=== PATIENT | female | born 1980 | race Caucasian/White ===

== ENCOUNTER 2021-10-12 21:08 | Inpatient (IN) | payer OTHER, SELFPAY ==
[2021-10-12] VITALS (7 sets, daily range): BP systolic 87–109; BP diastolic 53–56; PULSE 101–109; RESP 30–31; O2SAT 96–100; BMI 29.0
--- NOTE | 2021-10-12 21:21 | DI.RAD.S_ITS ---
PROCEDURE: XR CHEST 1V INDICATIONS: suspected sepsis TECHNIQUE: One view of the chest was acquired. COMPARISON: None. FINDINGS: Surgical changes and devices: None. Lungs and pleura: Lungs are clear. No pleural effusions or pneumothorax. Mediastinum: Mediastinal contours appear normal. Heart size is normal. Bones and chest wall: No suspicious bony lesions. Overlying soft tissues appear unremarkable. IMPRESSION: Mildly reduced inspiratory volume, left greater than right, no pneumonia seen. No subdiaphragmatic free air is found. Dictated by: Chico Santoro M.D. on 10/12/2021 at 22:02 Approved by: Chico Santoro M.D. on 10/12/2021 at 22:02
[2021-10-12] MEDS: SODIUM CHLORIDE 0.9% 1,000 ML 1000 ML IV (21:28)
[2021-10-12 21:45] LABS: Appearance Urine UA CLOUDY; Bilirubin Urine UA 1+ (NEGATIVE); Glucose Urine UA NEGATIVE (Negative); Ketones Urine UA TRACE (NEGATIVE); Leukocyte Esterase Urine UA 2+ (NEGATIVE); Nitrite Urine UA NEGATIVE (Negative); Occult Blood Urine UA 1+ (Negative); Protein Urine UA 2+ (Negative); Specific Gravity Urine UA 1.025 (1.000-1.035); Urobilinogen Urine UA 0.2 E.U./dL (0.2)
[2021-10-12 21:46] LABS: Add Manual Diff / Slide Review NO; Basophils Absolute Auto 0 /uL (0-100); Basophils Percent Auto 0.2 % (0-2); Eosinophils Absolute Auto 0 /uL (0-450); Hematocrit 40.4 % (36-46); Hemoglobin 13.7 g/dL (13.5-17.5); Lymphocytes Absolute Auto 600 /uL (1100-4500); Lymphocytes Percent Auto 5.7 % (25-40); Mean Corpuscular Hemoglobin 33.8 PG (26-34); Mean Corpuscular Volume 99.4 fL (80-100); Monocytes Absolute Auto 1000 /uL (0-900); Monocytes Percent Auto 8.9 % (3-14); Neutrophils Absolute Auto 9700 /uL (1500-7000); Neutrophils Percent Auto 85.2 % (50-75); Platelet Count 261 X10^3/uL (150-400); Red Blood Cell Count 4.07 X10^6/uL (4.0-5.2); Red Cell Distribution Width 14.3 % (11.6-14.8); White Blood Cell Count 11.3 X10^3/uL (4.5-11.0)
[2021-10-12 21:51] LABS: Color Urine UA Dark Yellow
[2021-10-12 21:53] LABS: Ictotest Urine Positive (Negative); RBC Urine 0-1/HPF (0-5/HPF); WBC Urine 30-100/HPF (0-5/HPF)
[2021-10-12 21:53] LABS: Alanine Aminotransferase 24 IU/L (<35); Alkaline Phosphatase 73 U/L (38-126); Aspartate Aminotransferase 32 IU/L (14-36); BUN Creatinine Ratio 10.3 (6-22); Bilirubin Total 1.1 mg/dL (0.2-1.3); Blood Urea Nitrogen 23 mg/dL (7-17); Calcium 8.9 mg/dL (8.4-10.2); Carbon Dioxide 18 mmol/L (22-32); Chloride 97 mmol/L (98-107); Estimated Glomerular Filt Rate 28 mL/min (>60); Globulin 3.9 g/dL (1.7-4.1); Glucose 114 mg/dL (70-100); HEMOLYSIS 21 (0-50); Lactate (Lactic Acid) 1.4 mmol/L (0.7-2.1); Lipase 86 U/L (23-300); Potassium 3.2 mmol/L (3.4-5.1); Sodium 130 mmol/L (137-145); Total Protein 7.9 g/dL (6.3-8.2)
[2021-10-12 21:54] LABS: Squamous Epithelial Cell Urine 10-30 /HPF (0-5/HPF)
[2021-10-12 21:55] LABS: Bacteria Urine Many (>30); Culture Indicated Urine Cult Not Indicated; Hyaline Casts Urine 0-1/LPF; Mucus Urine 1+ (Negative)
[2021-10-12 21:56] LABS: COVID19 -Nasal RAPID Negative (Negative)
--- NOTE | 2021-10-12 22:04 | ED.GENADULT ---
HPI - General Adult General Chief complaint: Abdominal Pain Stated complaint: Temp 103.4F, Syncope Time Seen by Provider: 10/12/21 21:37 History of Present Illness HPI narrative: 41-year-old female former smoker without any significant medical history presents for evaluation of fever, chills and feeling unwell for the past few days. She states that she probably started feeling poorly over the weekend but thought maybe she just had a viral upper respiratory infection or perhaps was dehydrated from the son. As the week has progressed she has had urinary complaints including dysuria and frequency as well as back pain. Additionally she complains of generally feeling unwell and is a bit achy with malaise. She denies runny nose, sore throat or cough. She has no chest pain or shortness of breath. She has become dizzy and lightheaded and became near syncopal at 1 point. Related Data Allergies Allergy/AdvReac Type Severity Reaction Status Date / Time sulfamethoxazole Allergy Intermediate Hives Verified 10/13/21 01:02 [From ] trimethoprim [From ] Allergy Intermediate Hives Verified 10/13/21 01:02 Review of Systems Review of Systems Narrative: GENERAL: See HPI HEENT: Denies sinus pain, ear pain, sore throat, difficulty swallowing, dizziness. RESPIRATORY: Denies dyspnea, cough, wheezing, hemoptysis, sputum. CARDIOVASCULAR: Denies chest pain, palpitations, orthopnea, edema, GASTROINTESTINAL: See HPI : See HPI MUSCULOSKELETAL: denies weakness, joint pain, or bony pain SKIN: Denies rash, skin lesions, or other NEUROLOGIC: Denies weakness, headache, numbness, change in speech, confusion, seizures, incoordination. PSYCHIATRIC: No concerning psychosocial issues. 12 point review of systems is negative except for those stated above Patient History Social History Smoking Status: Former smoker Exam Narrative Exam Narrative: GENERAL: [41] year old patient appears stated age. Well-developed patient, in mild distress. HEAD: Atraumatic. Normocephalic. EYES: Pupils equal round and reactive. Extraocular motions intact. No scleral icterus. No injection or drainage. ENT: Nose without bleeding, purulent drainage. Throat without erythema, tonsillar hypertrophy or exudate. Airway patent. NECK: Trachea midline. Non tender CARDIOVASCULAR: Tachycardic and regular rhythm without murmurs, gallops, or rubs. RESPIRATORY: Clear to auscultation. Breath sounds equal bilaterally. No wheezes, rales, or rhonchi. GASTROINTESTINAL: Abdomen soft, non-tender, nondistended. EXTREMITIES: No edema or joint tenderness. BACK: Bilateral CVA tenderness NEURO: AOx3. SKIN: No rash or erythema of visible areas Initial Vital Signs Initial Vital Signs: Vital Signs Pulse Rate 106 H 10/12/21 21:54 Pulse Oximetry 96 10/12/21 21:54 Course Orders Ordered: ED Orders 10/12/21 21:21 XR chest 1V Stat RT Consult Eval and Treat NOW 10/12/21 21:25 Ictotest Urine Stat UA Complete [Urinalysis and Microscopic] Stat 10/12/21 21:30 COVID19 -Nasal RAPID/Pre-Proc Stat Complete Blood Count AUTO DIFF Stat Comprehensive Metabolic Panel Stat Lactate (Lactic Acid) Stat Lipase Stat Procalcitonin Stat 10/12/21 21:43 Blood Culture Stat 10/12/21 23:38 CT kidney ureter bladder (KUB) Stat 10/13/21 02:25 Consult to Tele-stock plan administrator Routine 10/13/21 05:00 Basic Metabolic Panel DAILY Complete Blood Count AUTO DIFF DAILY Magnesium DAILY 10/14/21 05:00 Basic Metabolic Panel DAILY Complete Blood Count AUTO DIFF DAILY Magnesium DAILY 10/15/21 05:00 Basic Metabolic Panel DAILY Complete Blood Count AUTO DIFF DAILY Magnesium DAILY Acetaminophen (Acetaminophen 325 Mg Tablet) 650 mg PO Q6HR PRN PRN Reason: Fever/Mild Pain (1-3) Heparin Sodium (Porcine) (Heparin 5,000 Unit/Ml Vial) 5,000 unit SUBCUT BID MELLISSA NOREPINEPHRINE BITARTRATE/D5W (Levophed) 4 mg in 250 mls @ 30 mls/hr IV TITRATE MELLISSA; Protocol Last Titration: 10/13/21 03:13 Dose: 0 mcg/min, 0 mls/hr Documented By: Titration: 10/13/21 01:27 Dose: 1 mcg/min, 3.75 mls/hr Documented By: Titration: 10/13/21 01:20 Dose: 2 mcg/min, 7.5 mls/hr Documented By: Titration: 10/13/21 01:11 Dose: 3 mcg/min, 11.25 mls/hr Documented By: Titration: 10/13/21 01:01 Dose: 2 mcg/min, 7.5 mls/hr Documented By: Titration: 10/13/21 00:56 Dose: 4 mcg/min, 15 mls/hr Documented By: Admin: 10/13/21 00:49 Dose: 8 mcg/min, 30 mls/hr Documented By: EVIE Sodium Chloride (Normal Saline 0.9%) 1,000 mls @ 250 mls/hr IV CONT MELLISSA Last Admin: 10/13/21 02:16 Dose: 250 mls/hr Documented By: EVIE Discontinued Medications Acetaminophen (Acetaminophen 325 Mg Tablet) 975 mg PO NOW ONE Stop: 10/12/21 23:16 Last Admin: 10/12/21 23:19 Dose: 975 mg Documented By: EDOUARD Sodium Chloride (Normal Saline 0.9%) 1,000 mls @ 1,000 mls/hr IV BOLUS ONE Stop: 10/12/21 22:20 Last Infusion: 10/12/21 23:47 Dose: 0 mls/hr Documented By: Admin: 10/12/21 21:28 Dose: 1,000 mls/hr Documented By: EVIE Ceftriaxone Sodium 2,000 mg/ (Sodium Chloride) 100 mls @ 200 mls/hr IV NOW ONE Stop: 10/12/21 22:05 Last Infusion: 10/12/21 23:20 Dose: 0 mls/hr Documented By: Admin: 10/12/21 22:18 Dose: 200 mls/hr Documented By: ALPESH Sodium Chloride (Normal Saline 0.9%) 2,680.74 mls @ 893.58 mls/hr 30 ml/kg infuse over 3 hr (2680.74 ml) IV NOW ONE Stop: 10/13/21 02:30 Last Infusion: 10/13/21 01:31 Dose: 0 mls/hr Documented By: Admin: 10/12/21 23:37 Dose: 893.58 mls/hr Documented By: ALANIS Sodium Chloride (Normal Saline 0.9%) 500 mls @ 1,000 mls/hr IV BOLUS ONE Stop: 10/13/21 02:01 Last Infusion: 10/13/21 02:15 Dose: 0 mls/hr Documented By: Admin: 10/13/21 01:34 Dose: 1,000 mls/hr Documented By: SB Sodium Chloride (Normal Saline 0.9%) 1,000 mls @ 175 mls/hr IV CONT MELLISSA Reevaluation(s) Reevaluation #1: 0020 -patient has been given 30 cc/kilogram of fluids for sepsis and pressure continues to slowly drop, map is now at 60, Levophed ordered, 2nd IV placed 0110 - Levo being titrated down, now at 2, MAP is 72 0200 - Levo down to 1, MAP is 71 0341 -patient has now been off levo entirely for 30-40 minutes and map is in upper 70s and lower 80s. Patient doing much better, alert and oriented, appropriate for floor as opposed to ICU at this point Vital Signs Vital signs: Vital Signs - 8 hr 10/12/21 21:54 10/12/21 21:55 10/12/21 21:55 Temperature Pulse Rate 106 H 104 H Respiratory Rate 30 H Blood Pressure 109/56 L Pulse Oximetry 96 100 10/12/21 22:00 10/12/21 22:00 10/12/21 22:30 Temperature Pulse Rate 105 H Respiratory Rate 30 H Blood Pressure 93/53 L 107/56 L Pulse Oximetry 100 10/12/21 22:30 10/12/21 23:00 10/12/21 23:00 Temperature Pulse Rate 101 H 101 H Respiratory Rate 31 H 30 H Blood Pressure 94/54 L Pulse Oximetry 100 98 10/12/21 23:25 10/12/21 23:25 10/12/21 23:30 Temperature Pulse Rate 109 H Respiratory Rate Blood Pressure 87/55 L 94/55 L Pulse Oximetry 99 10/12/21 23:30 10/13/21 00:03 10/13/21 00:00 Temperature 100.2 F H Pulse Rate 104 H Respiratory Rate Blood Pressure 87/49 L Pulse Oximetry 99 10/13/21 00:00 10/13/21 00:15 10/13/21 00:15 Temperature Pulse Rate 104 H 99 H Respiratory Rate Blood Pressure 87/54 L Pulse Oximetry 94 96 10/13/21 00:17 10/13/21 00:17 10/13/21 00:30 Temperature Pulse Rate 99 H Respiratory Rate Blood Pressure 91/54 L 83/46 L Pulse Oximetry 96 10/13/21 00:30 10/13/21 00:34 10/13/21 00:34 Temperature Pulse Rate 96 H 93 H Respiratory Rate Blood Pressure 89/51 L Pulse Oximetry 97 95 10/13/21 00:42 10/13/21 00:42 10/13/21 00:50 Temperature Pulse Rate 97 H Respiratory Rate Blood Pressure 89/50 L 101/59 L Pulse Oximetry 95 10/13/21 00:50 10/13/21 00:55 10/13/21 00:55 Temperature Pulse Rate 96 H 87 Respiratory Rate 24 22 Blood Pressure 124/66 Pulse Oximetry 95 97 10/13/21 01:00 10/13/21 01:00 10/13/21 01:05 Temperature Pulse Rate 93 H Respiratory Rate Blood Pressure 119/66 106/59 L Pulse Oximetry 97 10/13/21 01:05 10/13/21 01:10 10/13/21 01:10 Temperature Pulse Rate 91 H 93 H Respiratory Rate 20 Blood Pressure 100/57 L Pulse Oximetry 96 96 10/13/21 01:15 10/13/21 01:15 10/13/21 01:20 Temperature Pulse Rate 89 Respiratory Rate 31 H Blood Pressure 103/56 L 107/56 L Pulse Oximetry 96 10/13/21 01:20 10/13/21 01:25 10/13/21 01:25 Temperature Pulse Rate 91 H 95 H Respiratory Rate 26 H 30 H Blood Pressure 110/64 Pulse Oximetry 97 97 10/13/21 01:30 10/13/21 01:30 10/13/21 01:35 Temperature Pulse Rate 92 H Respiratory Rate 27 H Blood Pressure 108/61 105/59 L Pulse Oximetry 97 10/13/21 01:35 10/13/21 01:40 10/13/21 01:40 Temperature Pulse Rate 94 H 98 H Respiratory Rate 27 H Blood Pressure 101/59 L Pulse Oximetry 97 95 10/13/21 01:45 10/13/21 01:45 10/13/21 01:57 Temperature Pulse Rate 95 H 98 H Respiratory Rate 27 H Blood Pressure 103/57 L Pulse Oximetry 94 96 10/13/21 01:58 10/13/21 01:58 10/13/21 02:00 Temperature Pulse Rate 95 H Respiratory Rate 30 H Blood Pressure 97/55 L 102/59 L Pulse Oximetry 94 10/13/21 02:00 10/13/21 02:05 10/13/21 02:05 Temperature Pulse Rate 95 H 94 H Respiratory Rate 31 H 27 H Blood Pressure 98/53 L Pulse Oximetry 95 96 10/13/21 02:10 10/13/21 02:10 10/13/21 02:15 Temperature Pulse Rate 96 H Respiratory Rate 25 H Blood Pressure 101/60 104/56 L Pulse Oximetry 95 10/13/21 02:15 10/13/21 02:20 10/13/21 02:20 Temperature Pulse Rate 96 H 94 H Respiratory Rate 24 36 H Blood Pressure 101/57 L Pulse Oximetry 95 94 10/13/21 02:25 10/13/21 02:25 Temperature Pulse Rate 93 H Respiratory Rate 29 H Blood Pressure 102/56 L Pulse Oximetry 97 Medical Decision Making Lab Data Result diagrams: 10/12/21 21:30 10/12/21 21:30 Labs: Lab Results 10/12/21 10/12/21 10/12/21 Range/Units 21:25 21:30 21:30 WBC 11.3 H (4.5-11.0) X10^3/uL RBC 4.07 (4.0-5.2) X10^6/uL Hgb 13.7 (13.5-17.5) g/dL Hct 40.4 (36-46) % MCV 99.4 (80-100) fL MCH 33.8 (26-34) PG MCHC 34.0 (30-36) % RDW 14.3 (11.6-14.8) % Plt Count 261 (150-400) X10^3/uL Neut % (Auto) 85.2 H (50-75) % Lymph % (Auto) 5.7 L (25-40) % [place] % (Auto) 8.9 (3-14) % Eos % (Auto) 0.0 L (2-4) % Baso % (Auto) 0.2 (0-2) % Neut # (Auto) 9700 H (3643-8720) /uL Lymph # (Auto) 600 L (6282-9401) /uL [place] # (Auto) 1000 H (0-900) /uL Eos # (Auto) 0 (0-450) /uL Baso # (Auto) 0 (0-100) /uL Sodium 130 L (137-145) mmol/L Potassium 3.2 L (3.4-5.1) mmol/L Chloride 97 L (98-107) mmol/L Carbon Dioxide 18 L (22-32) mmol/L BUN 23 H (7-17) mg/dL Creatinine 2.23 H (0.52-1.04) mg/dL Estimated GFR 28 L (>60) mL/min BUN/Creatinine Ratio 10.3 (6-22) Glucose 114 H (70-100) mg/dL Lactate (0.7-2.1) mmol/L Calcium 8.9 (8.4-10.2) mg/dL Total Bilirubin 1.1 (0.2-1.3) mg/dL AST 32 (14-36) IU/L ALT 24 (<35) IU/L Alkaline Phosphatase 73 (38-126) U/L Total Protein 7.9 (6.3-8.2) g/dL Albumin 4.0 (3.5-5.0) g/dL Globulin 3.9 (1.7-4.1) g/dL Albumin/Globulin Ratio 1.0 (1.0-2.8) Lipase 86 (23-300) U/L Procalcitonin 26.3 H (<0.5) ng/mL Urine Color Dark yellow Urine Appearance Cloudy Urine pH 5.0 (4.5-8.0) Ur Specific [place] 1.025 (1.000-1.035) Urine Protein 2+ H (Negative) Urine Glucose (UA) Negative (Negative) g/dL Urine Ketones Trace H (NEGATIVE) Urine Occult Blood 1+ H (Negative) Urine Nitrate Negative (Negative) Urine Bilirubin 1+ H (NEGATIVE) Ur Bilirubin Confirm Positive H (Negative) Urine Urobilinogen 0.2 (0.2) E.U./dL Ur Leukocyte Esterase 2+ H (NEGATIVE) Urine RBC 0-1/hpf (0-5/HPF) Urine WBC 30-100/hpf H (0-5/HPF) Ur Squamous Epith Cells 10-30 /hpf H (0-5/HPF) Urine Bacteria Many (>30) H (None) Hyaline Casts 0-1/lpf (None) Urine Mucus 1+ H (Negative) Ur Culture Indicated? Cult not indicated SARS-CoV-2 (PCR) (Negative) 10/12/21 10/12/21 Range/Units 21:30 21:30 WBC (4.5-11.0) X10^3/uL RBC (4.0-5.2) X10^6/uL Hgb (13.5-17.5) g/dL Hct (36-46) % MCV (80-100) fL MCH (26-34) PG MCHC (30-36) % RDW (11.6-14.8) % Plt Count (150-400) X10^3/uL Neut % (Auto) (50-75) % Lymph % (Auto) (25-40) % [place] % (Auto) (3-14) % Eos % (Auto) (2-4) % Baso % (Auto) (0-2) % Neut # (Auto) (4504-3712) /uL Lymph # (Auto) (0526-0248) /uL [place] # (Auto) (0-900) /uL Eos # (Auto) (0-450) /uL Baso # (Auto) (0-100) /uL Sodium (137-145) mmol/L Potassium (3.4-5.1) mmol/L Chloride (98-107) mmol/L Carbon Dioxide (22-32) mmol/L BUN (7-17) mg/dL Creatinine (0.52-1.04) mg/dL Estimated GFR (>60) mL/min BUN/Creatinine Ratio (6-22) Glucose (70-100) mg/dL Lactate 1.4 (0.7-2.1) mmol/L Calcium (8.4-10.2) mg/dL Total Bilirubin (0.2-1.3) mg/dL AST (14-36) IU/L ALT (<35) IU/L Alkaline Phosphatase (38-126) U/L Total Protein (6.3-8.2) g/dL Albumin (3.5-5.0) g/dL Globulin (1.7-4.1) g/dL Albumin/Globulin Ratio (1.0-2.8) Lipase (23-300) U/L Procalcitonin (<0.5) ng/mL Urine Color Urine Appearance Urine pH (4.5-8.0) Ur Specific [place] (1.000-1.035) Urine Protein (Negative) Urine Glucose (UA) (Negative) g/dL Urine Ketones (NEGATIVE) Urine Occult Blood (Negative) Urine Nitrate (Negative) Urine Bilirubin (NEGATIVE) Ur Bilirubin Confirm (Negative) Urine Urobilinogen (0.2) E.U./dL Ur Leukocyte Esterase (NEGATIVE) Urine RBC (0-5/HPF) Urine WBC (0-5/HPF) Ur Squamous Epith Cells (0-5/HPF) Urine Bacteria (None) Hyaline Casts (None) Urine Mucus (Negative) Ur Culture Indicated? SARS-CoV-2 (PCR) Negative (Negative) Point of Care Testing Test Results Negative Urine Dip Bedside Urine Glucose Negative Bedside Urine Bilirubin - Negative Bedside Urine Ketone - Negative Urine Specific [place] 1.030 Bedside Urine Occult Blood + Bedside Urine pH 5.5 Bedside Urine Protein ++ 100 Bedside Urine Urobilinogen - Negative Bedside Urine Nitrite - Negative Bedside Urine Leukocytes ++ 125 Esterase Point of care testing: Point of Care Testing Test Results Negative Urine Dip Bedside Urine Glucose Negative Bedside Urine Bilirubin - Negative Bedside Urine Ketone - Negative Urine Specific [place] 1.030 Bedside Urine Occult Blood + Bedside Urine pH 5.5 Bedside Urine Protein ++ 100 Bedside Urine Urobilinogen - Negative Bedside Urine Nitrite - Negative Bedside Urine Leukocytes ++ [address] scan - abdomen/pelvis: Radiologist's Impression: Close Abdomen/Pelvis CT (Signed) Chico Santoro - 10/12/21 Chest X-Ray (Signed) Chico Santoro - 10/12/21 Launch?[place] [address] CT Scan Report Signed Patient: Lyric Syed MR#: [id number] : 1980 Acct:[id number] Age/Sex: 41 / F Date of Service: 10/12/21 Loc: ED Accession Number: [id number] ?? Procedure: CT kidney ureter bladder (KUB) Ordering Provider: Robin Zayas D.O. PROCEDURE:? CT KIDNEY URETER BLADDER (KUB) ? INDICATIONS:? septic, renal failure, pyelo ? TECHNIQUE:? Axial sections were acquired from the lung bases to the pubic symphysis.? Coronal and sagittal reformats were performed.? For radiation dose reduction, the following was used: ?automated exposure control, adjustment of mA and/or kV according to patient size.? ? COMPARISON:? None. ? FINDINGS:? Image quality:? Excellent.? ? Lung bases:? Unremarkable.? ? Heart:? No significant findings. ? URINARY: Right Kidney: ? No stones or hydronephrosis.? Right Ureter:? No hydroureter.? ? Left Kidney: ? No stones or hydronephrosis. Left Ureter:? No hydroureter.? ? Bladder:? Normal wall thickness. No stones. ? ? ? ABDOMEN: Liver:? Unremarkable.? ? Gallbladder:? Multiple small peripherally calcified gallstones are present within the gallbladder lumen but there is no sign of acute cholecystitis or biliary obstruction? ? Biliary ducts:? Unremarkable.? ? Pancreas:? Unremarkable.? ? Spleen:? Unremarkable.? ? Adrenal Glands:? Unremarkable.? ? ? Stomach and Bowel:? Stomach, small bowel loops, and colon are unremarkable.? Peritoneum:? No abnormal intraperitoneal fluid.? No free air.? ? Ventral Wall: ? No hernia.? Abdominal Nodes:? No enlarged retroperitoneal or mesenteric lymph nodes.? Vessels:? Aorta and inferior vena cava are normal in size.? ? PELVIS: Pelvic Organs:? Unremarkable.? ? Pelvic Nodes: Unremarkable. Miscellaneous: No inguinal hernias are seen. ? ? ? Bones:? Unremarkable. ? IMPRESSION:? ? No abscess or evidence of urinary tract obstruction or inflammation is seen.? Multiple small peripherally calcified gallstones are present within the gallbladder lumen without evidence of acute cholecystitis or biliary obstruction. ? Centrally positioned IUD is incidentally noted. ? Dictated by: Chico Santoro M.D. on 10/13/2021 at 0:18 ? ? Approved by: Chico Santoro M.D. on 10/13/2021 at 0:19 ? Discharge Plan Departure Patient Disposition: Admitted As Inpatient Clinical Impression: Sepsis, UTI (urinary tract infection), Acute kidney injury Admit Date/Time: 10/13/21 02:25 Admit Provider: Disha Devi
[2021-10-12 22:10] LABS: Procalcitonin 26.3 ng/mL (<0.5)
[2021-10-12] MEDS: cefTRIAXone 2,000 MG in SODIUM CHLORIDE 0.9% 100 ML 200 MG IV (22:18)
[2021-10-12] MEDS: ACETAMINOPHEN 325 MG TABLET 975 MG PO (23:19)
[2021-10-12] MEDS: SODIUM CHLORIDE 0.9% 893.58 ML IV (23:37)
--- NOTE | 2021-10-12 23:38 | DI.CT.S_ITS ---
PROCEDURE: CT KIDNEY URETER BLADDER (KUB) INDICATIONS: septic, renal failure, pyelo TECHNIQUE: Axial sections were acquired from the lung bases to the pubic symphysis. Coronal and sagittal reformats were performed. For radiation dose reduction, the following was used: automated exposure control, adjustment of mA and/or kV according to patient size. COMPARISON: None. FINDINGS: Image quality: Excellent. Lung bases: Unremarkable. Heart: No significant findings. URINARY: Right Kidney: No stones or hydronephrosis. Right Ureter: No hydroureter. Left Kidney: No stones or hydronephrosis. Left Ureter: No hydroureter. Bladder: Normal wall thickness. No stones. ABDOMEN: Liver: Unremarkable. Gallbladder: Multiple small peripherally calcified gallstones are present within the gallbladder lumen but there is no sign of acute cholecystitis or biliary obstruction Biliary ducts: Unremarkable. Pancreas: Unremarkable. Spleen: Unremarkable. Adrenal Glands: Unremarkable. Stomach and Bowel: Stomach, small bowel loops, and colon are unremarkable. Peritoneum: No abnormal intraperitoneal fluid. No free air. Ventral Wall: No hernia. Abdominal Nodes: No enlarged retroperitoneal or mesenteric lymph nodes. Vessels: Aorta and inferior vena cava are normal in size. PELVIS: Pelvic Organs: Unremarkable. Pelvic Nodes: Unremarkable. Miscellaneous: No inguinal hernias are seen. Bones: Unremarkable. IMPRESSION: No abscess or evidence of urinary tract obstruction or inflammation is seen. Multiple small peripherally calcified gallstones are present within the gallbladder lumen without evidence of acute cholecystitis or biliary obstruction. Centrally positioned IUD is incidentally noted. Dictated by: Chico Santoro M.D. on 10/13/2021 at 0:18 Approved by: Chico Santoro M.D. on 10/13/2021 at 0:19
[2021-10-13] VITALS (61 sets, daily range): BP systolic 83–124; BP diastolic 46–68; PULSE 84–108; RESP 12–36; TEMP 35.6–38.8; O2SAT 61–100; BMI 29.0
[2021-10-13] MEDS: NOREPINEPHRINE BITARTRATE/D5W 4 MG/250 ML PLAST..BAG 30 MG IV (00:49)
[2021-10-13] MEDS: SODIUM CHLORIDE 0.9% 500 ML 1000 ML IV (01:34)
[2021-10-13] MEDS: SODIUM CHLORIDE 0.9% 1,000 ML 250 ML IV ×2 (02:16→06:24)
--- NOTE | 2021-10-13 03:46 | P.HP_ITS ---
History of Present Illness History of Present Illness Date Patient Seen: 10/13/21 Time Patient Seen: 03:00 Chief complaint: Temp 103.4F, Syncope Narrative: Lyric Syed is a 41-year-old SAB 1 former smoker who presented to the emergency department with a 5 day history of spiking fevers, nausea, abdominal pain and back pain,. On Thursday she spiked a fever of 102.8 and had body aches thinking this was viral in nature. 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 She could not walk and then she started throwing up. She denies shortness of breath, sore throat, chest pain, dysuria or constipation. LMP: ThursdayOctober 07. She has eaten once in the past 4 days. She has been drinking a electrolyte type smoothie and has been able to tolerate that. She denies any recent travel or sick contacts at home. She states that she had COVID 2 months ago and had the exact same symptoms and has been testing herself daily and has been negative. Chest x-ray was negative for any acute cardiopulmonary process, CT of the abdomen and pelvis did not identify any abscesses or abnormalities of the kidneys or ureters. There was an incidental finding of an IUD. Her WBC is 11.3 with a left shift, sodium 130 potassium 3.2 chloride 97 bicarb 18 BUN 23 creatinine 2.23, unknown baseline, EGFR 28, glucose 114, lactate 1.4, liver enzymes were within normal limits, procalcitonin was markedly elevated at 26.3, UA was positive for ketones, occult blood, urine bilirubin, leukocyte esterase, urine WBC, squamous epithelial cells and ?many bacteria however did not meet criteria for culture. COVID-19 PCR is negative rest of viral culture is pending. She was very hypotensive in the emergency department and after 3 normal saline boluses she remained in a systolic of the 80s and was started on Levophed. She was to be initially admitted to the ICU on the Levophed drip but eventually her blood pressure normalized and decision was made to have her admitted to the floor after the Levophed was discontinued and her MAP was in low 80s. FH: Mother is 65, alive has diabetes type 2. Father is 68, alive has diet- controlled diabetes and gout Patient History Medical History (Updated 10/13/21 @ 04:57 by JANET Santos) Essential hypertension Surgical History (Updated 10/13/21 @ 04:58 by JANET Santos) History of tonsillectomy Hx of laparoscopic gastric banding Family & Social History Safety & Behavioral: Feels Safe in Current Yes Environment Been Physically Hurt or No Threatened By a Person Tobacco & Substance use: Smoking Status Former smoker alcohol intake frequency wine daily Substance Use Type does not use Meds Home Medications and Allergies Allergies Allergy/AdvReac Type Severity Reaction Status Date / Time sulfamethoxazole Allergy Intermediate Hives Verified 10/13/21 01:02 [From ] trimethoprim [From ] Allergy Intermediate Hives Verified 10/13/21 01:02 Review of Systems Review of Systems ROS: Yes All systems reviewed with the patient and are negative except as otherwise documented Exam Vital Signs (past 8 hours): - 10/12/21 21:54 10/12/21 21:55 10/12/21 21:55 Temperature Pulse Rate 106 H 104 H Respiratory Rate 30 H Blood Pressure 109/56 L Pulse Oximetry 96 100 10/12/21 22:00 10/12/21 22:00 10/12/21 22:30 Temperature Pulse Rate 105 H Respiratory Rate 30 H Blood Pressure 93/53 L 107/56 L Pulse Oximetry 100 10/12/21 22:30 10/12/21 23:00 10/12/21 23:00 Temperature Pulse Rate 101 H 101 H Respiratory Rate 31 H 30 H Blood Pressure 94/54 L Pulse Oximetry 100 98 10/12/21 23:25 10/12/21 23:25 10/12/21 23:30 Temperature Pulse Rate 109 H Respiratory Rate Blood Pressure 87/55 L 94/55 L Pulse Oximetry 99 10/12/21 23:30 10/13/21 00:03 10/13/21 00:00 Temperature 100.2 F H Pulse Rate 104 H Respiratory Rate Blood Pressure 87/49 L Pulse Oximetry 99 10/13/21 00:00 10/13/21 00:15 10/13/21 00:15 Temperature Pulse Rate 104 H 99 H Respiratory Rate Blood Pressure 87/54 L Pulse Oximetry 94 96 10/13/21 00:17 10/13/21 00:17 10/13/21 00:30 Temperature Pulse Rate 99 H Respiratory Rate Blood Pressure 91/54 L 83/46 L Pulse Oximetry 96 10/13/21 00:30 10/13/21 00:34 10/13/21 00:34 Temperature Pulse Rate 96 H 93 H Respiratory Rate Blood Pressure 89/51 L Pulse Oximetry 97 95 10/13/21 00:42 10/13/21 00:42 10/13/21 00:50 Temperature Pulse Rate 97 H Respiratory Rate Blood Pressure 89/50 L 101/59 L Pulse Oximetry 95 10/13/21 00:50 10/13/21 00:55 10/13/21 00:55 Temperature Pulse Rate 96 H 87 Respiratory Rate 24 22 Blood Pressure 124/66 Pulse Oximetry 95 97 10/13/21 01:00 10/13/21 01:00 10/13/21 01:05 Temperature Pulse Rate 93 H Respiratory Rate Blood Pressure 119/66 106/59 L Pulse Oximetry 97 10/13/21 01:05 10/13/21 01:10 10/13/21 01:10 Temperature Pulse Rate 91 H 93 H Respiratory Rate 20 Blood Pressure 100/57 L Pulse Oximetry 96 96 10/13/21 01:15 10/13/21 01:15 10/13/21 01:20 Temperature Pulse Rate 89 Respiratory Rate 31 H Blood Pressure 103/56 L 107/56 L Pulse Oximetry 96 10/13/21 01:20 10/13/21 01:25 10/13/21 01:25 Temperature Pulse Rate 91 H 95 H Respiratory Rate 26 H 30 H Blood Pressure 110/64 Pulse Oximetry 97 97 10/13/21 01:30 10/13/21 01:30 10/13/21 01:35 Temperature Pulse Rate 92 H Respiratory Rate 27 H Blood Pressure 108/61 105/59 L Pulse Oximetry 97 10/13/21 01:35 10/13/21 01:40 10/13/21 01:40 Temperature Pulse Rate 94 H 98 H Respiratory Rate 27 H Blood Pressure 101/59 L Pulse Oximetry 97 95 10/13/21 01:45 10/13/21 01:45 10/13/21 01:57 Temperature Pulse Rate 95 H 98 H Respiratory Rate 27 H Blood Pressure 103/57 L Pulse Oximetry 94 96 10/13/21 01:58 10/13/21 01:58 10/13/21 02:00 Temperature Pulse Rate 95 H Respiratory Rate 30 H Blood Pressure 97/55 L 102/59 L Pulse Oximetry 94 10/13/21 02:00 10/13/21 02:05 10/13/21 02:05 Temperature Pulse Rate 95 H 94 H Respiratory Rate 31 H 27 H Blood Pressure 98/53 L Pulse Oximetry 95 96 10/13/21 02:10 10/13/21 02:10 10/13/21 02:15 Temperature Pulse Rate 96 H Respiratory Rate 25 H Blood Pressure 101/60 104/56 L Pulse Oximetry 95 10/13/21 02:15 10/13/21 02:20 10/13/21 02:20 Temperature Pulse Rate 96 H 94 H Respiratory Rate 24 36 H Blood Pressure 101/57 L Pulse Oximetry 95 94 10/13/21 02:25 10/13/21 02:25 10/13/21 02:30 Temperature Pulse Rate 93 H Respiratory Rate 29 H Blood Pressure 102/56 L 106/55 L Pulse Oximetry 97 10/13/21 02:30 10/13/21 02:35 10/13/21 02:35 Temperature Pulse Rate 94 H 92 H Respiratory Rate 29 H 26 H Blood Pressure 106/58 L Pulse Oximetry 98 98 10/13/21 02:40 10/13/21 02:40 10/13/21 02:45 Temperature Pulse Rate 90 Respiratory Rate 29 H Blood Pressure 102/57 L 99/56 L Pulse Oximetry 61 L 10/13/21 02:45 10/13/21 02:50 10/13/21 02:50 Temperature Pulse Rate 90 90 Respiratory Rate 27 H 29 H Blood Pressure 102/57 L Pulse Oximetry 99 98 10/13/21 02:55 10/13/21 02:55 10/13/21 02:59 Temperature Pulse Rate 91 H 91 H Respiratory Rate 29 H 28 H Blood Pressure 105/56 L Pulse Oximetry 99 99 10/13/21 03:00 10/13/21 03:00 10/13/21 03:05 Temperature Pulse Rate 93 H Respiratory Rate 12 Blood Pressure 110/68 111/58 L Pulse Oximetry 99 10/13/21 03:05 10/13/21 03:10 10/13/21 03:10 Temperature Pulse Rate 93 H 91 H Respiratory Rate 20 29 H Blood Pressure 105/59 L Pulse Oximetry 98 98 10/13/21 03:15 10/13/21 03:15 10/13/21 03:20 Temperature Pulse Rate 96 H Respiratory Rate 19 Blood Pressure 108/60 104/55 L Pulse Oximetry 99 10/13/21 03:20 10/13/21 03:25 10/13/21 03:25 Temperature Pulse Rate 93 H 92 H Respiratory Rate 29 H 26 H Blood Pressure 103/58 L Pulse Oximetry 98 99 10/13/21 03:30 10/13/21 03:30 10/13/21 03:35 Temperature Pulse Rate 93 H Respiratory Rate 26 H Blood Pressure 108/58 L 111/59 L Pulse Oximetry 100 10/13/21 03:35 Temperature Pulse Rate 96 H Respiratory Rate 25 H Blood Pressure Pulse Oximetry 99 Narrative Exam Narrative: Gen: Alert, oriented, well-developed 41 y.o. female, appears flushed HEENT: normocephalic, atraumatic, conjunctiva clear, sclera non-icteric, oral mucosa pink and moist Neck: supple, full ROM, no JVD, trachea is midline Resp: Lungs CTA, non-labored breathing CV: RRR, no murmur or rubs Abd: soft, non-tender, normoactive BTs Skin: no lesions or rashes, dry and intact Neuro: Alert and oriented X 4 w/no focal deficits. Speech clear and coherent. Extremities: moves all 4 extremities, is ambulatory, negative Laci?s sign Psyche: normal mood and affect. Objective Labs Result Diagrams: 10/12/21 21:30 10/12/21 21:30 Labs: Laboratory Results - last 24 hr 10/12/21 10/12/21 10/12/21 21:25 21:30 21:30 WBC 11.3 H RBC 4.07 Hgb 13.7 Hct 40.4 MCV 99.4 MCH 33.8 MCHC 34.0 RDW 14.3 Plt Count 261 Neut % (Auto) 85.2 H Lymph % (Auto) 5.7 L [place] % (Auto) 8.9 Eos % (Auto) 0.0 L Baso % (Auto) 0.2 Neut # (Auto) 9700 H Lymph # (Auto) 600 L [place] # (Auto) 1000 H Eos # (Auto) 0 Baso # (Auto) 0 Sodium 130 L Potassium 3.2 L Chloride 97 L Carbon Dioxide 18 L BUN 23 H Creatinine 2.23 H Estimated GFR 28 L BUN/Creatinine Ratio 10.3 Glucose 114 H Lactate Calcium 8.9 Total Bilirubin 1.1 AST 32 ALT 24 Alkaline Phosphatase 73 Total Protein 7.9 Albumin 4.0 Globulin 3.9 Albumin/Globulin Ratio 1.0 Lipase 86 Procalcitonin 26.3 H Urine Color Dark yellow Urine Appearance Cloudy Urine pH 5.0 Ur Specific [place] 1.025 Urine Protein 2+ H Urine Glucose (UA) Negative Urine Ketones Trace H Urine Occult Blood 1+ H Urine Nitrate Negative Urine Bilirubin 1+ H Ur Bilirubin Confirm Positive H Urine Urobilinogen 0.2 Ur Leukocyte Esterase 2+ H Urine RBC 0-1/hpf Urine WBC 30-100/hpf H Ur Squamous Epith Cells 10-30 /hpf H Urine Bacteria Many (>30) H Hyaline Casts 0-1/lpf Urine Mucus 1+ H Ur Culture Indicated? Cult not indicated SARS-CoV-2 (PCR) 10/12/21 10/12/21 21:30 21:30 WBC RBC Hgb Hct MCV MCH MCHC RDW Plt Count Neut % (Auto) Lymph % (Auto) [place] % (Auto) Eos % (Auto) Baso % (Auto) Neut # (Auto) Lymph # (Auto) [place] # (Auto) Eos # (Auto) Baso # (Auto) Sodium Potassium Chloride Carbon Dioxide BUN Creatinine Estimated GFR BUN/Creatinine Ratio Glucose Lactate 1.4 Calcium Total Bilirubin AST ALT Alkaline Phosphatase Total Protein Albumin Globulin Albumin/Globulin Ratio Lipase Procalcitonin Urine Color Urine Appearance Urine pH Ur Specific [place] Urine Protein Urine Glucose (UA) Urine Ketones Urine Occult Blood Urine Nitrate Urine Bilirubin Ur Bilirubin Confirm Urine Urobilinogen Ur Leukocyte Esterase Urine RBC Urine WBC Ur Squamous Epith Cells Urine Bacteria Hyaline Casts Urine Mucus Ur Culture Indicated? SARS-CoV-2 (PCR) Negative Assessment & Plan Assessment & Plan narrative: Lyric Syed is admitted to the inpatient service for further evaluation and management of sepsis, fevers, and acute kidney injury. Sepsis, acute, present on admission * She presented with fevers, acute kidney injury, and metabolic abnormalities including hyponatremia and hypokalemia. * She received boluses of 3 L IV normal saline in the emergency department and was then initiated on IV norepinephrine due to acute hypotension * She was in the emergency department for approximately 4-5 hours and by the time she was ready to be brought up to the unit her blood pressure normalized * Fever control with oral Tylenol and ice packs patient unable to take ibuprofen in the setting of acute kidney injury Probable urinary tract infection, acute, present on admission * She had a markedly elevated procalcitonin though lactate was normal * She was initiated on IV ceftriaxone VTE Prophylaxis: Wells risk score 0]Enoxaparin 40 mg subQ once daily Bilateral SCDs Patient is admitted to the inpatient service due to the severity of disease, risks of further disease progression and this stay is expected to exceed 2 midnights. FEN: IV fluids: NS at 250ml/hour, diet: advance to general diet as tolerated, labs: CBC, C/BMP, liver enzymes, Mag, PT/INR Consultants None Dispo: discharge to home Code status: Full code as discussed with the patient who identifies her brother, Power Gray her surrogate and POA. [X] I have utilized all available immediate resources to obtain, update, or review of the patient's current medications VTE Deep Vein Thrombosis/Pulmonary Embolism Present on Admission: No MIPS - Admit I confirm the patient?s Advance Care Plan is present, Code status is documented, Surrogate decision maker is in patient?s record [If Yes, STOP here]: Yes MIPS - DC The patient has current or prior documentation of left ventricular ejection fraction (LVEF) less than 40%, or moderate or severely depressed left ventricul ar systolic function.: No COVID-19 COVID-19 status: Negative Result date/Date tested (Pos, Neg/Pending): 10/13/21 Time Spent With Patient Critical Care time: I spent a total of [] minutes of critical care time on this patient's care today; this time is exclusive of procedural time.
[2021-10-13 05:10] LABS: Adenovirus Not Detected (Not Detect); B. parapertussis Not Detected (Not Detecte); Bordetella pertussis Not Detected (Not Detecte); Chlamydophila pneumoniae Not Detected (Not Detect); Coronavirus 229E Not Detected (Not Detect); Coronavirus HKU1 Not Detected (Not Detect); Coronavirus NL 63 Not Detected (Not Detect); Coronavirus OC43 Not Detected (Not Detect); Human Metapneumovirus Not Detected (Not Detect); Human Rhinovirus/Enterovirus Not Detected (Not Detect); Influenza A Not Detected (Not Detect); Influenza B Not Detected (Not Detect); Mycoplasma pneumoniae Not Detected (Not Detect); Parainfluenza Virus 1 Not Detected (Not Detect); Parainfluenza Virus 2 Not Detected (Not Detect); Parainfluenza Virus 3 Not Detected (Not Detect); Parainfluenza Virus 4 Not Detected (Not Detect); Respiratory Syncytial Virus Not Detected (Not Detect); SARS- CoV-2 Not Detected (Not Detecte)
[2021-10-13 05:49] LABS: Alanine Aminotransferase 19 IU/L (<35); Albumin 3.2 g/dL (3.5-5.0); Albumin Globulin Ratio 1.1 (1.0-2.8); Alkaline Phosphatase 59 U/L (38-126); Aspartate Aminotransferase 25 IU/L (14-36); BUN Creatinine Ratio 12.3 (6-22); Bilirubin Total 0.8 mg/dL (0.2-1.3); Bilirubin Unconjugated 0.4 mg/dL (0.0-1.1); Blood Urea Nitrogen 16 mg/dL (7-17); Calcium 7.6 mg/dL (8.4-10.2); Carbon Dioxide 21 mmol/L (22-32); Chloride 104 mmol/L (98-107); Estimated Glomerular Filt Rate 53 mL/min (>60); Globulin 2.9 g/dL (1.7-4.1); Glucose 103 mg/dL (70-100); HEMOLYSIS < 15 (0-50); Magnesium 1.8 mg/dL (1.6-2.3); Potassium 3.4 mmol/L (3.4-5.1); Sodium 135 mmol/L (137-145); Total Protein 6.1 g/dL (6.3-8.2)
[2021-10-13 05:51] LABS: Add Manual Diff / Slide Review NO; Basophils Absolute Auto 0 /uL (0-100); Basophils Percent Auto 0.2 % (0-2); Eosinophils Absolute Auto 0 /uL (0-450); Hematocrit 35.5 % (36-46); Hemoglobin 12.1 g/dL (12.0-16.0); Lymphocytes Absolute Auto 700 /uL (1100-4500); Lymphocytes Percent Auto 7.6 % (25-40); Mean Corpuscular HGB Conc 34.1 % (30-36); Monocytes Absolute Auto 1000 /uL (0-900); Monocytes Percent Auto 11.3 % (3-14); Neutrophils Absolute Auto 7400 /uL (1500-7000); Neutrophils Percent Auto 80.9 % (50-75); Platelet Count 215 X10^3/uL (150-400); Red Blood Cell Count 3.55 X10^6/uL (4.0-5.2); Red Cell Distribution Width 14.5 % (11.6-14.8); White Blood Cell Count 9.2 X10^3/uL (4.5-11.0)
[2021-10-13] MEDS: POTASSIUM CHLORIDE IN WATER 10 MEQ/100 ML PIGGYBACK 100 MEQ IV ×4 (06:26→12:58)
[2021-10-13] MEDS: ACETAMINOPHEN 325 MG TABLET 975 MG PO ×2 (08:24→19:57)
[2021-10-13] MEDS: HEPARIN 5,000 UNIT/ML VIAL 5000 UNIT SUBCUT ×2 (08:24→21:09)
[2021-10-13] MEDS: ONDANSETRON 4 MG/2 ML INJ IV (08:24)
[2021-10-13] MEDS: SODIUM CHLORIDE 0.9% 1,000 ML 175 ML IV (12:58)
--- NOTE | 2021-10-13 15:14 | CM.DANOTE ---
Initial Discharge Planning Note: Met with patient, introduced self and role. Payer: [employer] and self pay. Patient employed. 41 year old single female admitted early this morning with fever and syncope, abdominal and back pain, ROSALIA abnormal labs. She has been started on IV antibiotics. Patient's daughter Mable asleep in room. Patient and daughter live together in [place]. Patient desires to return to previous home arrangement upon discharge. Patient drives and is independent. Plan: Follow closely for needs. TAMAR Discharge Planning/Care Management CM Discharge Assessment Start: 10/13/21 15:13 Freq: Status: Active Protocol: Document 10/13/21 15:13 (Rec: 10/13/21 15:14 [id number]) Discharge Planning Assessment Assigned Personal Care Aid Milady Hunter RN/ANDREAP Advance Directives? No History Provided By Patient Prior Living Arrangements Apartment/Condo Household Members family Type of transporation used prior to Drives own vehicle admit Willing to Return to Facility? Yes Independent with ADL's Yes Is patient alert and oriented? Yes Caregiver for Another No Barriers to Discharge No Discharge Plan Home Referrals Initiated None needed Review Status In Process Next Review Type Continued Stay Review
--- NOTE | 2021-10-13 17:34 | PC.NURSE ---
Pt is AxOx4, independent and cooperative. VSS, pt denies pain and sats on RA high 90s. T spiked 102f this morning for brief and pt recieved her routine Tylenol and it went down 99.0f. Her T was WNL throughout the day. Her HR goes up sometimes but it did not sustain. Pt's mentation and cognition is back to baseline. K-3.4 normal now. No other changes. Continue monitor.
[2021-10-13] MEDS: cefTRIAXone 1,000 MG in SODIUM CHLORIDE 0.9% 100 ML 200 MG IV (21:09)
[2021-10-14 02:15] VITALS: TEMP 36.8
[2021-10-14] MEDS: ACETAMINOPHEN 325 MG TABLET 975 MG PO ×2 (02:17→08:03)
[2021-10-14 05:15] VITALS: BP 99/67; PULSE 77; RESP 14; TEMP 36.7; O2SAT 98
[2021-10-14 05:37] LABS: Add Manual Diff / Slide Review NO; Basophils Absolute Auto 0 /uL (0-100); Basophils Percent Auto 0.6 % (0-2); Eosinophils Absolute Auto 0 /uL (0-450); Eosinophils Percent Auto 0.1 % (2-4); Hematocrit 30.8 % (36-46); Hemoglobin 10.6 g/dL (12.0-16.0); Lymphocytes Absolute Auto 700 /uL (1100-4500); Lymphocytes Percent Auto 12.1 % (25-40); Mean Corpuscular HGB Conc 34.2 % (30-36); Mean Corpuscular Volume 99.4 fL (80-100); Monocytes Absolute Auto 600 /uL (0-900); Monocytes Percent Auto 10.5 % (3-14); Neutrophils Absolute Auto 4600 /uL (1500-7000); Neutrophils Percent Auto 76.7 % (50-75); Platelet Count 238 X10^3/uL (150-400); Red Cell Distribution Width 14.3 % (11.6-14.8)
[2021-10-14 05:53] LABS: Blood Urea Nitrogen 9 mg/dL (7-17); Calcium 7.7 mg/dL (8.4-10.2); Carbon Dioxide 25 mmol/L (22-32); Chloride 104 mmol/L (98-107); Estimated Glomerular Filt Rate > 60 mL/min (>60); Glucose 99 mg/dL (70-100); HEMOLYSIS < 15 (0-50); Magnesium 2.1 mg/dL (1.6-2.3); Sodium 135 mmol/L (137-145)
[2021-10-14 06:04] LABS: Alanine Aminotransferase 15 IU/L (<35); Albumin 2.8 g/dL (3.5-5.0); Albumin Globulin Ratio 1.1 (1.0-2.8); Alkaline Phosphatase 55 U/L (38-126); Aspartate Aminotransferase 20 IU/L (14-36); Bilirubin Total 0.5 mg/dL (0.2-1.3); Bilirubin Unconjugated 0.3 mg/dL (0.0-1.1); Globulin 2.6 g/dL (1.7-4.1); HEMOLYSIS < 15 (0-50); Total Protein 5.4 g/dL (6.3-8.2)
[2021-10-14 06:33] LABS: Potassium 2.6 mmol/L (3.4-5.1)
[2021-10-14 06:59] LABS: Adenovirus F 40/41 Not Detected (Not Detect); Astrovirus Not Detected (Not Detect); Campylobacter Not Detected (Not Detect); Clostridium difficile toxin AB Not Detected (Not Detect); Cryptosporidium Not Detected (Not Detect); Cyclospora cayetanensis Not Detected (Not Detect); Entamoeba histolytica Not Detected (Not Detect); Enteroaggregative E.coli Not Detected (Not Detect); Enteropathogenic E.coli Not Detected (Not Detect); Enterotoxigenic E.coli It/st Not Detected (Not Detect); Giardia lamblia Not Detected (Not Detect); Norovirus GI/GII Not Detected (Not Detect); Plesiomonsa shigelloides Not Detected (Not Detect); Rotavirus A Not Detected (Not Detect); Salmonella Not Detected (Not Detect); Sapovirus Not Detected (Not Detect); Shiga-like toxin-prod E.coli Not Detected (Not Detect); Shigella/Enteroinvasive E.coli Not Detected (Not Detect); Vibrio Not Detected (Not Detect); Vibrio cholerae Not Detected (Not Detect); Yersinia enterocolitica Not Detected (Not Detect)
[2021-10-14 08:00] VITALS: BP 108/71; PULSE 80; RESP 16; TEMP 36.6; O2SAT 99
[2021-10-14] MEDS: HEPARIN 5,000 UNIT/ML VIAL 5000 UNIT SUBCUT (08:03)
[2021-10-14] MEDS: POTASSIUM CHLORIDE 20 MEQ TAB 60 MEQ PO (08:04)
[2021-10-14] MEDS: POTASSIUM CHLORIDE 20 MEQ/15 ML UDC PO (09:43)
[2021-10-14 13:11] VITALS: BP 128/76; PULSE 85; RESP 16; TEMP 36.6; O2SAT 99
--- NOTE | 2021-10-14 15:42 | P.DS_ITS ---
History of Present Illness History of Present Illness Date Patient Seen: 10/14/21 Chief complaint: Temp 103.4F, Syncope Narrative: JANET Casillas: Lyric Syed is a 41-year-old SAB 1 former smoker who presented to the emergency department with a 5 day history of spiking fevers, nausea, abdominal pain and back pain,. On Thursday she spiked a fever of 102.8 and had body aches thinking this was viral in nature. 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 She could not walk and then she started throwing up. She denies shortness of breath, sore throat, chest pain, dysuria or constipation. LMP: ThursdayOctober 07. She has eaten once in the past 4 days. She has been drinking a electrolyte type smoothie and has been able to tolerate that. She denies any recent travel or sick contacts at home. She states that she had COVID 2 months ago and had the exact same symptoms and has been testing herself daily and has been negative. Chest x-ray was negative for any acute cardiopulmonary process, CT of the abdomen and pelvis did not identify any abscesses or abnormalities of the kidneys or ureters. There was an incidental finding of an IUD. Her WBC is 11.3 with a left shift, sodium 130 potassium 3.2 chloride 97 bicarb 18 BUN 23 creatinine 2.23, unknown baseline, EGFR 28, glucose 114, lactate 1.4, liver enzymes were within normal limits, procalcitonin was markedly elevated at 26.3, UA was positive for ketones, occult blood, urine bilirubin, leukocyte esterase, urine WBC, squamous epithelial cells and ?many bacteria however did not meet criteria for culture. COVID-19 PCR is negative rest of viral culture is pending. She was very hypotensive in the emergency department and after 3 normal saline boluses she remained in a systolic of the 80s and was started on Levophed. She was to be initially admitted to the ICU on the Levophed drip but eventually her blood pressure normalized and decision was made to have her admitted to the floor after the Levophed was discontinued and her MAP was in low 80s. FH: Mother is 65, alive has diabetes type 2. Father is 68, alive has diet- controlled diabetes and gout Discharge Providers Provider Date of admission: 10/13/21 02:25 Discharge Date: 10/14/21 Discharge provider: Soy Johansen DO Summary Hospital Course Discharge Diagnosis: Sepsis with septic shock, hypotension, and ROSALIA. Hypokalemia, acute Acute cystitis, possible pyelonephritis Essential hypertension Hospital Course: This is a 41 year old female with PMH of HTN who was admitted with septic shock. She was briefly on pressor support for a few hours but was able to be weaned from this in the ER and was admitted to the hospital floor. She was started on ceftriaxone initially for presume urinary source based on admission evaluation. She continued to slowly improve, but did have continued fever, though to a much lesser degree. She was tolerating a diet and felt well on the day of discharge. Urine cultures were growing gram negative bacilli. She was discharged home on oral cefdinir to complete antibiotic course at home. She was also provided with anti-nausea medications. She was advised to hold her home anti-hypertensives at home and monitor her BP daily. Should her BP start to rise and SBP be greater than 140 for 2 days she can resume her home medications. She should follow up with her primary care provider as previously scheduled. Time Spent with Patient Time spent: Greater than 30 minutes Exam Vital Signs (past 8 hours): - 10/14/21 08:00 10/14/21 13:11 Temperature 97.8 F 97.8 F Pulse Rate 80 85 Respiratory Rate 16 16 Blood Pressure 108/71 128/76 Pulse Oximetry 99 99 Oxygen Delivery Method Room Air Oxygen Flow Rate 0 Narrative Exam Narrative: Gen: Alert, oriented, well-developed 41 y.o. female, no acute distress Resp: Lungs CTA, non-labored breathing CV: RRR, no murmur or rubs Abd: soft, non-tender, non-distended Objective Labs Result Diagrams: 10/14/21 05:19 10/14/21 05:19 Labs: Laboratory Results - last 24 hr 10/14/21 10/14/21 10/14/21 00:00 05:19 05:19 WBC 6.0 RBC 3.10 L Hgb 10.6 L Hct 30.8 L MCV 99.4 MCH 34.0 MCHC 34.2 RDW 14.3 Plt Count 238 Neut % (Auto) 76.7 H Lymph % (Auto) 12.1 L Drew % (Auto) 10.5 Eos % (Auto) 0.1 L Baso % (Auto) 0.6 Neut # (Auto) 4600 Lymph # (Auto) 700 L Drew # (Auto) 600 Eos # (Auto) 0 Baso # (Auto) 0 Sodium 135 L Potassium 2.6 L* Chloride 104 Carbon Dioxide 25 BUN 9 Creatinine 0.75 Estimated GFR > 60 BUN/Creatinine Ratio 12.0 Glucose 99 Calcium 7.7 L Magnesium 2.1 Total Bilirubin Conjugated Bilirubin Unconjugated Bilirubin AST ALT Alkaline Phosphatase Total Protein Albumin Globulin Albumin/Globulin Ratio Stl C. cayetanensis PCR Not detected Stool Rotavirus (PCR) Not detected Stool Adenovirus (PCR) Not detected Stool Astrovirus (PCR) Not detected Stool Cryptosporidium PCR Not detected Stl E.coli Shiga Tox PCR Not detected St Sh/Enteroin Ecoli PCR Not detected Stool E coli O157 PCR Not Reportable Stl Enterotoxigenic E PCR Not detected Stool EPEC (PCR) Not detected Stl E. histolytica PCR Not detected Stool Giardia Lamblia PCR Not detected Stool Sapovirus (PCR) Not detected Stl P. shigelloides PCR Not detected St Y.enterocolitica PCR Not detected Stool Vibrio (PCR) Not detected Stl Vibrio cholerae PCR Not detected Stl Enteroaggr Ecoli PCR Not detected Stl Norovirus GI/GII PCR Not detected Campylobacter (PCR) Not detected C. difficile Tox (PCR) Not detected Salmonella (PCR) Not detected 10/14/21 05:19 WBC RBC Hgb Hct MCV MCH MCHC RDW Plt Count Neut % (Auto) Lymph % (Auto) Drew % (Auto) Eos % (Auto) Baso % (Auto) Neut # (Auto) Lymph # (Auto) Drew # (Auto) Eos # (Auto) Baso # (Auto) Sodium Potassium Chloride Carbon Dioxide BUN Creatinine Estimated GFR BUN/Creatinine Ratio Glucose Calcium Magnesium Total Bilirubin 0.5 Conjugated Bilirubin 0.0 Unconjugated Bilirubin 0.3 AST 20 ALT 15 Alkaline Phosphatase 55 Total Protein 5.4 L Albumin 2.8 L Globulin 2.6 Albumin/Globulin Ratio 1.1 Stl C. cayetanensis PCR Stool Rotavirus (PCR) Stool Adenovirus (PCR) Stool Astrovirus (PCR) Stool Cryptosporidium PCR Stl E.coli Shiga Tox PCR St Sh/Enteroin Ecoli PCR Stool E coli O157 PCR Stl Enterotoxigenic E PCR Stool EPEC (PCR) Stl E. histolytica PCR Stool Giardia Lamblia PCR Stool Sapovirus (PCR) Stl P. shigelloides PCR St Y.enterocolitica PCR Stool Vibrio (PCR) Stl Vibrio cholerae PCR Stl Enteroaggr Ecoli PCR Stl Norovirus GI/GII PCR Campylobacter (PCR) C. difficile Tox (PCR) Salmonella (PCR) [facility] Medical History (Updated 10/13/21 @ 04:57 by JANET Santos) Essential hypertension Surgical History (Updated 10/13/21 @ 04:58 by JANET Santos) History of tonsillectomy Hx of laparoscopic gastric banding Social History household members: family Smoking Status: Former smoker Discharge Plan Discharge Plan Patient Disposition: Home Provider Discharge Comment: You were admitted to the hospital with a severe infection. Urine cultures were positive and you improved with antibiotic therapy . Please complete full course of antibiotics as prescribed and restart BP medications when BP start to creep up (restart if SBP starts being > 140 for 2 days or longer). Continue tylenol and motrin for pain control. A fever may continue over the next few days but you should generally continue to improve at home. Discharge orders & Medications Prescriptions: New cefdinir 300 mg capsule 300 mg PO BID 7 Days Qty: 14 0RF ondansetron 4 mg tablet,disintegrating 4 mg PO Q8H PRN (Reason: nausea and vomiting) 10 Days Qty: 30 0RF Discontinued amlodipine 2.5 mg tablet 2.5 mg PO DAILY losartan-hydrochlorothiazide 100-25 mg tablet 1 tab PO DAILY Label Comments: take 1 tablet by mouth every morning for high blood pressure Diet/Activity/Treatments Diet: Diet as Tolerated Activity: As tolerated Visit Report/Discharge Packet Instructions: DI for Urinary Tract Infection (UTI), DI for Sepsis -- Adult Quality VTE Deep Vein Thrombosis/Pulmonary Embolism Present on Admission: No
--- NOTE | 2021-10-14 16:29 | PC.NURSE ---
Pt is AxOx4, independent and cooperative. VSS, pt denies pain. K was low today and pt recieved PO 60 Meq potassium. Pt is eating better and voiding. Pt is back to baseline and ready d/c home today. No other changes.
== END 2021-10-14 16:29 | disposition home or self-care (01) | DRG 871 ==
LOC: ED 22:19 → AC 10-13 02:25
PROVIDERS: Internal Medicine; Admitting Provider Nurse Practitioner Family; Emergency Provider Emergency Medicine; Referring Provider Emergency Medicine; Visit Provider Nurse Practitioner Family
DX: A41.9 Sepsis, unspecified organism (principal); R65.21 Severe sepsis with septic shock; N17.9 Acute kidney failure, unspecified; E87.1 Hypo-osmolality and hyponatremia; N30.00 Acute cystitis without hematuria; N10 Acute pyelonephritis; I10 Essential (primary) hypertension; E87.6 Hypokalemia; Z87.891 Personal history of nicotine dependence; Z20.822 Contact with and (suspected) exposure to COVID-19
CPT/HCPCS: 36415; 71045; 74176; 80048; 80053; 80076; 81001; 81003; 81025; 83605; 83690; 83735; 84145; 85025; 87040; 87077; 87086; 87186; 87507; 87633; 87635; 96365; 96366; 96367; 99285; C9803; J0696; J1644; J2405